=== PATIENT | male | born 1985 | race Hispanic/Latino ===

== ENCOUNTER 2024-06-13 18:11 | Emergency (ER) | payer SELFPAY ==
[~2024-06-13] VITALS: Ht 165.1 cm; Wt 80.7 kg
[2024-06-13] MEDS: ketOROlac 15MG/ML VIAL (15MG/ML) IM ONE (19:15)
[2024-06-13 20:10] VITALS: BP 131/83; PULSE 80; RESP 16; TEMP 98.9; O2SAT 97
--- NOTE | 2024-06-13 20:22 | ERN ---
General Chief Complaint: Lower Extremity Pain/Injury Stated Complaint: RLE PAIN Time Seen by MD: 18:14 Time Seen by Midlevel: 18:14 Source: patient History of Present Illness Initial Comments Patient is a 38-year-old male with no significant past medical history presenting to the emergency department for evaluation of right lower extremity pain that started four days ago. Patient states he was on a ladder when he accidentally slipped and hit the right tib-fib area. He noticed a large hematoma that progressively worsened so he decided to report to the ER for further evaluation. Denies any other injury. Allergies: Coded Allergies: No Known Allergies (Unverified Allergy, Unknown, 06/13/24) Past Medical History Past Medical History: No Pertinent History Past Surgical History: None ROS Dictation CONSTITUTIONAL: Negative except for HPI HEAD/FACE: Negative except for HPI EENT: Negative except for HPI RESPIRATORY: Negative except for HPI GASTROINTESTINAL/ABDOMINAL: Negative except for HPI GENITOURINARY: Negative except for HPI MUSCULOSKELETAL: Negative except for HPI INTEGUMENTARY: Negative except for HPI NEUROLOGICAL/PSYCH: Negative except for HPI HEMATOLOGIC/LYMPHATIC: Negative except for HPI All Systems Negative, Except as noted above. 13 point review of systems assessed and all negative except for above. Physical Exam Physical Exam Dictation Vital Signs reviewed General Appearance: Alert, oriented x 3, no acute distress, well developed, nourished. Head and Face: non-traumatic. Eyes: PERRL, pink conjunctivas, eyelid no trauma, anterior chamber with arcus senilis. Ears: Pinnas intact and no signs of trauma or erythema ear canals clear and no discharge TM no erythema Nose: No discharge, no bleeding. Oropharynx: Mouth normal, tongue pink, pharynx clear,no erythema, tonsils no exudates, no abscesses noted, mucous membrane moist Neck: Supple, non-tender, no thyromegaly, no masses, no JVD, no bruits Breast:Deferred Chest:No tenderness, no crepitus, no paradoxical movement, no retractions Lungs:Clear, well-ventilated, symmetric, no rales, no wheezing, no rhonchi, no stridor, good breath sounds bilaterally Heart: Regular rate, regular rhythm, no murmur, no gallops Vascular: no peripheral edema, Abdomen: Soft, positive bowel sounds, nondistended, no guarding, nontender, no rebound, no masses no hepatomegaly, no splenomegaly, no Morales's s ign, no hernias. Rectal: Deferred Genital: Deferred Neurological: Normal speech, motor function intact, sensory function intact Musculoskeletal: Neck nontender, full range of motion, back nontender, full range of motion, Extremities: There is a hematoma/contusion to the right tib-fib area Skin: Color pink, dry, no turgor, no rash, no lacerations, no abrasions, no contusions. Lymphatic: Deferred MDM MDM: Differential diagnosis: Contusion, fracture, hematoma There are no social concerns with this patient. Prescription drug management Prescriptions will include: None Medical management and examination interpretation discussions were had by me with other qualified healthcare professionals as indicated for the patient's care. ED Course Orders Procedure Category Date Status Time Tibia/Fibula 2vws Rt RAD 06/13/24 Resulted 18:36 Ketorolac PHA 06/13/24 Complete Tromethamine 15mg/Ml 19:00 Current Medications Medications (Trade) Dose Ordered Sig/Khadijah Route PRN Reason Start Time Stop Time Status Last Admin Dose Admin Ketorolac Tromethamine (toRADol) 15 mg ONCE ONCE IM 06/13/24 19:00 06/13/24 19:01 DC 06/13/24 19:15 Vital Signs Date Time Temp Pulse Resp B/P (MAP) Pulse Ox O2 Delivery O2 Flow Rate FiO2 06/13/24 20:10 99.0 80 16 131/83 97 Room Air* 0 21 06/13/24 18:14 99.0 82 16 140/82 96 Room Air 0 [place] [address] [address] IMAGING REPORT Signed PATIENT: QUINTIN GUZMÁN MR#: [id number] : 1985 SEX: M AGE: 38 LOCATION: [facility] ORDER 36 STATUS: [facility] REPORT#: [id number] SERVICE 35 REASON: r/o fx ORDERING PHYSICIAN: MUSA ARCEO PROCEDURE: TIBFIB RT - TIBIA/FIBULA 2VWS RT Exam Type: TIBIA/FIBULA 2VWS RT Clinical Information: r/o fx Comparison: None Findings: The bone examination is unremarkable. No fractures or dislocations are seen. No radiopaque foreign bodies are noted. Soft tissues are preserved. IMPRESSION: Normal examination. DICTATED BY: DENIA BARDALES MD DATE: 06/13/242042 ELECTRONICALLY SIGNED BY: DENIA BARDALES MD DATE: 06/13/242047 DX & DISP Disposition: Discharge Departure Impression: Primary Impression: Contusion of right lower leg Additional Impression: Hematoma of right lower leg Condition: Stable Additional Instructions: Your x-ray does not show any evidence of an acute fracture. There is a hematoma to your tib-fib area. With time this should be absorbed into the body. Please follow up with your primary care doctor in 2-3 days for repeat evaluation. Referrals: SELF,REFERRAL (PCP) I have reviewed the case, and I agree with, Diagnosis and Plan I performed the substantive portion of the visit. I have reviewed and personally made and approve the management plan that is documented in the note by myself or the SANA. I acknowledge for responsibility for the patient's management plan. MUSA ARCEO Jun 13, 2024 20:22
--- NOTE | 2024-06-13 20:48 | HMCIMG ---
Exam Type: TIBIA/FIBULA 2VWS RT Clinical Information: r/o fx Comparison: None Findings: The bone examination is unremarkable. No fractures or dislocations are seen. No radiopaque foreign bodies are noted. Soft tissues are preserved. IMPRESSION: Normal examination.
== END 2024-06-13 20:25 | disposition home or self-care (01) ==
LOC: EDH 18:11
DX: S80.11XA Contusion of right lower leg, initial encounter (principal); X58.XXXA Exposure to other specified factors, initial encounter; Y93.89 Activity, other specified; Y92.89 Other specified places as the place of occurrence of the external cause; Y99.8 Other external cause status
CPT/HCPCS: 99283; 73590; 96372; J1885